=== PATIENT | male | born 1985 | race African-American/Black ===

== ENCOUNTER 2021-09-20 13:53 | Emergency (ER) | payer SELFPAY ==
[~2021-09-20] VITALS: Ht 188 cm; Wt 113.0 kg
[2021-09-20] MEDS ORDERED: ZIPRASIDONE MESYLATE 20MG/VIAL IM STA (14:01)
[2021-09-20] MEDS ORDERED: ZIPRASIDONE MESYLATE 20MG/VIAL IM ONE (18:45)
[2021-09-20] MEDS ORDERED: SODIUM CHLORIDE 0.9% 1,000 ML IV ONE (18:45)
[2021-09-20 20:24] LABS: BASOPHILS % 0.9 % (0.0-2.0); EOSINOPHILS % 1.8 % (0.0-5.0); HEMATOCRIT. 41.7 % (42.0-52.0); HEMOGLOBIN. 13.7 g/dL (14.0-18.0); LYMPHOCYTES % 20.7 % (20.0-50.0); MEAN CORPUSCULAR HEMOGLOBIN 31.4 pg (28.0-32.0); MEAN CORPUSCULAR VOLUME 95.3 fL (80.0-94.0); MEAN PLATELET VOLUME 9.6 fl (7.4-10.4); MONOCYTES % 12.4 % (2.0-8.0); NEUTROPHILS % 64.2 % (40.0-76.0); PLATELET 221 x1000/uL (130-400); RED BLOOD CELL COUNT 4.37 mill/uL (4.7-6.1)
[2021-09-20 20:42] LABS: CHLORIDE 107 mEq/L (98-107)
[2021-09-20 20:48] LABS: ETHANOL BLOOD < 10 mg/dL
[2021-09-21] MEDS ORDERED: ZIPRASIDONE MESYLATE 20MG/VIAL IM ONE (02:45)
[2021-09-21 03:52] LABS: CLARITY URINE CLEAR (CLEAR); COLOR URINE YELLOW (YELLOW); KETONES URINE TRACE (NEGATIVE); LEUKOCYTE ESTERASE URINE 1+ (NEGATIVE); NITRITE URINE NEGATIVE (NEGATIVE); OCCULT BLOOD URINE NEGATIVE (NEGATIVE); PROTEIN URINE NEGATIVE (NEGATIVE); SPECIFIC GRAVITY URINE 1.019 (1.005-1.030)
[2021-09-21 04:02] LABS: *AMPHETAMINES SCREEN URINE PRESUMTIVE POSITIVE (NEGATIVE); *BARBITURATES SCREEN URINE NEGATIVE (NEGATIVE); *BENZODIAZEPINES SCREEN URINE NEGATIVE (NEGATIVE); *COCAINE SCREEN URINE PRESUMTIVE POSITIVE (NEGATIVE); CANNABINOID URINE SCREEN PRESUMTIVE POSITIVE (NEGATIVE); METHADONE URINE SCREEN NEGATIVE (NEGATIVE); OPIATES URINE SCREEN NEGATIVE (NEGATIVE); PHENCYCLIDINE URINE SCREEN PRESUMTIVE POSITIVE (NEGATIVE)
[2021-09-21 07:54] VITALS: BP 139/83
== END 2021-09-21 11:13 | disposition home or self-care (01) ==
LOC: ER 14:04 → EDBD 14:04 → ER 09-21 11:13
DX: R41.82 Altered mental status, unspecified (principal)
CPT/HCPCS: 36415; 76705; 80053; 80305; 80320; 81003; 85025; 87086; 96360; 96372; 99285; J3486; J7030; Z7610; G0480